=== PATIENT | male | born 1965 | race Two or more races ===

== ENCOUNTER 2019-04-16 17:57 | Emergency (ER) | payer MEDICAID ==
[~2019-04-16] VITALS: Ht 167.6 cm; Wt 86.2 kg
[~2019-04-16 17:57] MED LIST: ATORVASTATIN CA10 MG ORAL
[2019-04-16 18:00] VITALS: BP 158/98
--- NOTE | 2019-04-16 18:00 | NUR ---
ED Nurse Note: Pt brought in by ambulance d/t severe lower/medial back pain. Pt was in the grocery store when he was reaching down for laundry detergent and felt a "twinge." Pt went to the ground and said he could not move d/t the pain. Respirations even and unlabored on room air. Vitals stable as documented.
[2019-04-16] MEDS ORDERED: Ketorolac 30mg Inj IM ONE (18:15)
[2019-04-16] MEDS ORDERED: Methocarbamol 500mg tab ORAL ONE (18:15)
[2019-04-16] MEDS ORDERED: oxyCODONE HCL/Acetaminophen 5/325mg ORAL ONE (18:15)
--- NOTE | 2019-04-16 18:20 | NUR ---
ED Nurse Note: Pt in radiolgy
--- NOTE | 2019-04-16 18:25 | Emergency Room Report ---
History of Present Illness General Chief Complaint: Lower Back Pain or Injury Source: Patient Present Illness HPI Patient is a 54-year-old male past medical history of hypertension and hyperlipidemia who presents to the ER complaining of lower back pain. Patient states that he had pain to half weeks ago after mopping around his house which resolved after 45 days of rest. Patient states that he was at the [employer] store he tried to lift a heavy bottle of detergent when he felt pain again in his lower back. He denies any fever, IV drug use, focal weakness, changes to his bowel or bladder habits. Patient was brought in by EMS he states that it was too painful to walk. He denies any history of lumbar surgery Allergies: Coded Allergies: No Known Allergies (Unverified , 04/16/19) Patient History Past Medical History: HTN, other - hld Past Surgical History: none Social History: Denies: smoking, alcohol use, drug use Nursing Documentation-[facility] Past Medical History: No History, Except For Hx Hypertension: Yes Review of Systems All Other Systems: negative except mentioned in HPI Physical Exam Vital Signs Date Time Temp Pulse Resp B/P (MAP) Pulse Ox O2 Delivery O2 Flow Rate FiO2 04/16/19 17:51 99.0 84 18 163/101 (121) 99 Room Air Sp02 EP Interpretation: reviewed, normal General Appearance: alert, GCS 15, non-toxic, mild distress Head: normocephalic, atraumatic Eyes: bilateral eye normal inspection, bilateral eye PERRL ENT: hearing grossly normal, normal pharynx, no angioedema, normal voice Neck: full range of motion, supple/symm/no masses Respiratory: chest non-tender, lungs clear, normal breath sounds, speaking full sentences Cardiovascular #1: regular rate, rhythm, no edema Gastrointestinal: normal bowel sounds, non tender, soft, non-distended, no guarding, no rebound Rectal: deferred Genitourinary: normal inspection, no CVA tenderness Musculoskeletal: normal range of motion, calf tenderness, tender - Lumbar tenderness to palpation with no step-offs or obvious deformity Neurologic: alert, motor strength/tone normal, oriented x3, sensory intact, responsive, speech normal, other - No saddle anesthesia Psychiatric: judgement/insight normal, memory normal, mood/affect normal, no suicidal/homicidal ideation Reflexes: 3+ knee (R), 3+ knee (L) Skin: no rash Lymphatic: no adenopathy Medical Decision Making Diagnostic Impression: Primary Impression: Lumbar back pain Additional Impression: Muscle spasm ER Course Patient given muscle relaxant, NSAID, opiate and steroids. On reevaluation his pain has improved and he is ambulating. Patient CT was read by outside radiologist that demonstrated no acute findings. I informed the patient of this and told him that his CT would be reread by our radiologist in the morning and that we would call him if there were any acute findings. I suspect the back pain that the patient is presenting with is non-emergent in etiology. Regarding the history, the patient denies gradual onset, trauma, fevers, night sweats, history of malignancy, pain worse at night, IVDU or refractory pain. Given these pertinent negatives in the history an emergent cause of the back pain is less likely. Also doubt cardiovascular cause of back pain such as aortic dissection or ruptured abdominal aortic aneurysm given patient with equal pulses in all 4 extremities with no diastolic murmur, or pulsatile abdominal mass. Epidural abscess considered unlikely given no fever or history of IVDU. The patient does not have history of malignancy so doubt metastasis to bone. Also doubt caudaequina syndrome since patient with no history of urinary/ fecal incontinence or focal weakness or change in sensation. The patient was counseled that, though unlikely, the possibility of an emergent cause of back pain may still be present and that the patient should return immediately if symptoms persists or worsen. I believe the patient is stable for discharge to follow-up with their PMD for further workup and possible MRI. Last Vital Signs Date Time Temp Pulse Resp B/P (MAP) Pulse Ox O2 Delivery O2 Flow Rate FiO2 04/16/19 18:00 99.0 82 18 158/98 99 Room Air Disposition: HOME, SELF-CARE Condition: Improved - stable Scripts Lidocaine Patch* (Lidoderm Patch*) 1 Each Adh..patch 1 PATCH TOPIC DAILY, #30 PATCH Patch(es) may remain in place for up to 12 hours in any 24-hour period. Prov: Sarina Price M.D. 04/16/19 Docusate Sodium* (COLACE*) 100 Mg Capsule 100 MG ORAL THREE TIMES A DAY, #30 CAP Prov: Sarina Price M.D. 04/16/19 Hydrocodone Bit/Acetaminophen 5-325* (NORCO 5-325 TABLET*) 1 Each Tablet 1 TAB ORAL Q6H PRN for FOR PAIN, #20 TAB 0 Refills Prov: Sarina Price M.D. 04/16/19 Prednisone* (PREDNISONE*) 20 Mg Tablet 60 MG ORAL DAILY for 5 Days, TAB Prov: Sarina Price M.D. 04/16/19 Methocarbamol* (ROBAXIN-750*) 750 Mg Tablet 750 MG PO QID, #20 TAB 0 Refills Prov: Sarina Price M.D. 04/16/19 Ibuprofen* (MOTRIN*) 600 Mg Tablet 600 MG ORAL Q8H PRN for For Pain, #30 TAB 0 Refills Prov: Sarina Price M.D. 04/16/19 Additional Instructions: The patient was provided with discharge instructions, notified to follow-up with a primary care doctor and or specialist in the next 24-48 hours, and to return to the ED if they have worsening of their symptoms. Please note that this report is being documented using [employer] technology. This can lead to erroneous entry secondary to incorrect interpretation by the dictating instrument. Sarina Price M.D. Apr 16, 2019 18:25
--- NOTE | 2019-04-16 18:30 | NUR ---
ED Nurse Note: Pt back from radiology
--- NOTE | 2019-04-16 18:57 | Diagnostic Imaging Report ---
Indications: Trauma, lower back pain Technique: Spiral acquisitions obtained through the lumbar spine. Multiplanar reconstructions were generated. No IV contrast utilized. Total dose length product 379 mGycm. CTDIvol(s) 9 mGy. Dose reduction achieved using automated exposure control Comparison: none Findings: Bony alignment is normal. Vertebral body heights are preserved. The disc spaces are preserved. No evidence of acute fracture or dislocation. At L4-5, there is mild circumferential annular bulge. This does not appear to significantly compromise the spinal canal. The neural foramina are preserved. The remaining disc levels, no significant disc bulge or protrusion, spinal stenosis, or neural foraminal stenosis. Included extraspinal soft tissues are unremarkable. Impression: No acute process This agrees with the preliminary interpretation provided overnight by [facility]eradiology service. The CT scanner at [facility] is accredited by the [employer] and the scans are performed using protocols designed to limit radiation exposure to as low as reasonably achievable to attain images of sufficient resolution adequate for diagnostic evaluation.
--- NOTE | 2019-04-16 19:03 | NUR ---
ED Nurse Note: Report given to DAT Cano. Pt in stable condition, plan of care endorsed.
--- NOTE | 2019-04-16 19:05 | NUR ---
ED Nurse Note: Report received from DAT Figueroa. Pt is laying in bed, no acute distress noted.
[2019-04-16] MEDS ORDERED: HYDROmorphone 1mg/ml Carpuject IM ONE (19:15)
[2019-04-16] MEDS ORDERED: PREDNISONE20 MG ORAL (19:47)
[2019-04-16] MEDS ORDERED: IBUPROFEN600 MG ORAL (19:47)
[2019-04-16] MEDS ORDERED: COLACE100 MG ORAL (19:47)
[2019-04-16] MEDS ORDERED: LIDODERM700 M1 TOPIC (19:47)
[2019-04-16] MEDS ORDERED: NORCO 5-325 TA1 EAC1 ORAL (19:47)
[2019-04-16] MEDS ORDERED: ROBAXIN-750750 MG PO (19:47)
[2019-04-16 20:30] VITALS: BP 145/87
--- NOTE | 2019-04-16 20:30 | NUR ---
ER DISCHARGE NOTE: Patient is cleared to be discharged per ERMD, pt is aox4, on room air, with stable vital signs. pt was given dc and prescription instructions, pt was able to verbalize understanding, pt id band removed. pt is able to ambulate with steady gait. pt took all belongings.
== END 2019-04-16 20:30 | disposition home or self-care (01) ==
LOC: EDBD 17:57 → EMR 18:21
DX: M54.5 Low back pain (principal); M62.838 Other muscle spasm; I10 Essential (primary) hypertension; E78.5 Hyperlipidemia, unspecified
CPT/HCPCS: 72131; 96372; J1170; J1885; J7512; Z7502; 99284